=== PATIENT | female | born 1970 | race Caucasian/White ===

== ENCOUNTER 2016-10-17 06:45 | Day surgery (SDC) | payer OTHER ==
[~2016-10-17] VITALS: Ht 160 cm; Wt 77.3 kg
[~2016-10-17 06:45] MED LIST: ALPR.25 PO; AMLO5TAB2 PO; CYCL1TAB29 PO; HYDR-3288 PO; LIPI10TA PO; LORA-361 PO; OXYC1TAB63 PO
[2016-10-17 07:01] VITALS: BP 122/81; PULSE 76; RESP 20; TEMP 98; O2SAT 99
[2016-10-17] MEDS ORDERED: SODIUM CHLORIDE 0.9% 1000 ML IV SCH (07:15)
[2016-10-17] MEDS ORDERED: ceFAZolin 2 GM PREMIX 50 ML - implanted port removal IV SCH (07:15)
[2016-10-17] MEDS ORDERED: CLAR10CA3 PO (07:34)
[2016-10-17] MEDS ORDERED: MIDAZOLAM HCL 5 MG/5 ML VIAL ONE (09:26)
[2016-10-17] MEDS ORDERED: fentaNYL CITRATE 250 MCG/5 ML AMP ONE (09:26)
[2016-10-17] MEDS ORDERED: LIDOCAINE 1%/EPINEPHrine 1:100,000 SOLN 30 ML VIAL ONE (09:33)
[2016-10-17 10:08] VITALS: BP 115/64; PULSE 68; RESP 19; TEMP 98.5; O2SAT 99
--- NOTE | 2016-10-17 10:09 | PD.RAD ---
Post Procedure Progress Note Pre Procedure Diagnosis: (1) Port catheter in place (2) Adnexal mass Post Procedure Diagnosis: (1) Port catheter in place Procedure Date: Oct 17, 2016 Supervising Radiologist: Jose Collado Proceduralist/Assist: Wendi Greenfield, RT(R), Kaykay Williamson RT(R)() Anesthesia: Conscious Sedation Plan of Activity Patient to Unit: [facility] Patient Condition: Good Additional Comments: intact port See PACS Report for procedural detail/treatment Jose Collado MD Oct 17, 2016 10:09
--- NOTE | 2016-10-17 10:20 | RADRPT ---
EXAM DATE/TIME: 10/17/2016 00:00 [facility] COMPARISON: No previous studies available for comparison. INDICATIONS : Patient with a history of ovarian and endometrial cancer no longer needs port. MEDICAL HISTORY : HTN Anxiety Arthritis SURGICAL HISTORY : Titanium plates in right arm Hysterectomy Lymph node biopsy ENCOUNTER: Subsequent ACUITY: 7-11 months PAIN SCORE: 0/10 SEDATION TIME: 30 minutes 1.) 5 mg midazolam (Versed) IV 2.) 250 mcg fentanyl (Sublimaze) IV Prophylactic antibiotics were administered with appropriate pre-procedure timing. Vancomycin within 2 hrs of procedure, Ancef (or alternative) within 1 hr of procedure. PROCEDURE : 1. Removal of [id number]. 2. Conscious sedation with continuous EKG and oximetry monitoring. The risk, benefits and potential complications of [id number] removal were discussed. Written conse nt was obtained. The patient was placed supine. The chest wall was prepped in sterile fashion. Full sterile techniqu e was used, including cap, mask, sterile gloves and gown, and a large sterile sheet. Hand hygiene an d 2% chlorhexidine and/or Betadine/alcohol prep was utilized per protocol for cutaneous antisepsis. The skin and subcutaneous tissues were infiltrated with local anesthetic solution. A small incision w as made, the subcutaneous pocket was opened. The port was dissected from the subcutaneous tissues and easily removed in one piece. The pocket incision was closed with subcuticular Vicryl suture. Steri -Strips were applied. Conscious sedation was performed with the prescribed dosages and duration as above in the presence of an independent trained radiology nurse to assist in the monitoring of the patient. EKG and oximetry remained stable throughout the procedure. The patient tolerated the procedure well and there were no complications. The patient was sent to post anesthesia recovery in stable condition. CONCLUSION: Uncomplicated port removal as above. Jose Collado MD on October 17, 2016 at 10:18 Board Certified Radiologist. This report was verified electronically.
[2016-10-17 10:23] VITALS: BP 105/58; PULSE 69; RESP 18; O2SAT 98
[2016-10-17 10:53] VITALS: BP 100/57; PULSE 62; RESP 17; O2SAT 99
[2016-10-17 11:23] VITALS: BP 112/58; PULSE 69; RESP 19; O2SAT 98
== END 2016-10-17 11:45 | disposition home or self-care (01) ==
LOC: HROP 06:45 → HRIP 06:45 → HROP 11:45
PROVIDERS: ATTEND Obstetrics & Gynecology Gynecologic Oncology
DX: Z45.2 Encounter for adjustment and management of vascular access device (principal); I10 Essential (primary) hypertension; M19.90 Unspecified osteoarthritis, unspecified site; F41.9 Anxiety disorder, unspecified; Z85.43 Personal history of malignant neoplasm of ovary; Z85.42 Personal history of malignant neoplasm of other parts of uterus
CPT/HCPCS: 36590; J0690; J2250; J3010; J7030; 99152; 99153